=== PATIENT | male | born 1970 | race Caucasian/White ===

== ENCOUNTER 2017-09-13 18:43 | Emergency (ER) | payer MEDICAID, OTHER ==
[2017-09-13 18:57] VITALS: BMI 27.6
[2017-09-13 19:00] VITALS: BP 122/76; PULSE 79; RESP 18; TEMP 98.6; O2SAT 98
--- NOTE | 2017-09-13 20:50 | C.PDOC ---
History Of Present Illness Patient presents to ED with complaints of coughing with greenish yellow sputum for the past week. Patient states he has chest pain when he coughs and notes he took mucinex with no relief. Patient speaks in complete sentences and denies fever, chills, nausea, vomiting or diarrhea. Time Seen by Provider: 09/13/17 20:49 Chief Complaint (Nursing): Chest Pain History Per: Patient History/Exam Limitations: no limitations Onset/Duration Of Symptoms: Days (7) Current Symptoms Are (Timing): Still Present Severity: Moderate Pain Scale Rating Of: 4 Associated Symptoms: denies: Nausea, Dyspnea, Diaphoresis, Syncope Modifying Factors: None Exacerbating Factors: None Alleviating Factors: None Recent travel outside of the [place]: No Past Medical History Reviewed: Historical Data, Nursing Documentation, Vital Signs Vital Signs: Last Vital Signs Temp 98.6 F 09/13/17 18:57 Pulse 79 09/13/17 18:57 Resp 18 09/13/17 18:57 BP 122/76 09/13/17 18:57 Pulse Ox 98 09/13/17 21:34 - Medical History PMH: No Chronic Diseases Surgical History: No Surg Hx Family History: States: No Known Family Hx - Social History Hx Alcohol Use: No Hx Substance Use: No - Immunization History Hx Tetanus Toxoid Vaccination: No Hx Influenza Vaccination: No Hx Pneumococcal Vaccination: No Review Of Systems Constitutional: Negative for: Fever, Chills Respiratory: Positive for: Cough Gastrointestinal: Negative for: Nausea, Vomiting, Diarrhea Musculoskeletal: Positive for: Other (Chest wall pain when coughing ) Physical Exam - Physical Exam Appears: Non-toxic, Other (Awake and alert) Skin: Warm, Dry Head: Normacephalic Eye(s): bilateral: Normal Inspection Ear(s): Bilateral: Normal Oral Mucosa: Moist Throat: No Erythema, No Exudate Chest: Symmetrical, No Tenderness Cardiovascular: Rhythm Regular Respiratory: No Rales, Rhonchi (Scattered), No Wheezing Gastrointestinal/Abdominal: Soft, No Tenderness Neurological/Psych: Oriented x3 ED Course And Treatment ECG: Interpreted By Me, Viewed By Me ECG Rhythm: Sinus Rhythm (78), Nonspecific Changes O2 Sat by Pulse Oximetry: 98 (Room air) Pulse Ox Interpretation: Normal Progress Note: Administered aspirin, SOLU-Medrol, and albuterol nebulizer. Ordered EKG, CXR, blood work, and flu swab. 9:40 went to reasses the pt but pt had eloped Disposition Counseled Patient/Family Regarding: Studies Performed, Diagnosis - Disposition Disposition: ELOPEMENT - ER ONLY Disposition Time: 20:50 Condition: UNKNOWN Forms: [facility] (Romansh) - Clinical Impression Clinical Impression: URI (upper respiratory infection) - Scribe Statement The provider has reviewed the documentation as recorded by the Scribe Aura Pires All medical record entries made by the Benitaibmely were at my direction and personally dictated by me. I have reviewed the chart and agree that the record accurately reflects my personal performance of the history, physical exam, medical decision making, and the department course for this patient. I have also personally directed, reviewed, and agree with the discharge instructions and disposition.
[2017-09-13] MEDS ORDERED: Aspirin 325 mg EC Tablets PO STA (21:05)
[2017-09-13] MEDS ORDERED: Albuterol-Ipratrop 3 mg / 0.5 (3 ml) UD IH SCH (21:15)
[2017-09-13] MEDS ORDERED: Albuterol-Ipratrop 3 mg / 0.5 (3 ml) UD ONE (21:20)
[2017-09-13] MEDS ORDERED: Aspirin 325 mg EC Tablets PO ONE (21:23)
--- NOTE | 2017-09-15 12:51 | CARD ---
APPROVED REPORT EKG Measurement Heart [id number] <Conclusion> Normal sinus rhythm Nonspecific T wave abnormality Abnormal ECG
== END 2017-09-13 21:42 | disposition left against medical advice (07) ==
LOC: C.ER 18:43
DX: J06.9 Acute upper respiratory infection, unspecified (principal)